=== PATIENT | male | born 1965 | race Caucasian/White ===

== ENCOUNTER 2021-01-16 14:24 | Emergency (ER) | payer OTHER ==
[2021-01-16 14:58] VITALS: TEMP 98.6; BMI 28.3
[2021-01-16] MEDS ORDERED: IBUPROFEN 600 MG TABLET (FP) PO ONE (15:31)
[2021-01-16 16:19] LABS: BASO % 0.7 % (0-2.0); EOS % 3.7 % (0-4.5); HEMATOCRIT 40.7 % (35.4-49); HEMOGLOBIN 13.9 GM/dL (11.7-16.9); LYMPH % 39.9 % (8-40); MCH 31.2 pg (25.7-33.7); MCHC 34.2 g/dl (32.0-35.9); MEAN CELL VOLUME 91.4 fl (80-96); NEUT % 44.7 % (42.8-82.8); PLATELET COUNT 157 K/MM3 (134-434); RBC 4.45 M/mm3 (4.00-5.60); WHITE BLOOD COUNT 5.4 K/mm3 (4.0-10.0)
[2021-01-16 16:35] LABS: CHLORIDE 106 mmol/L (98-107); SODIUM 137 mmol/L (136-145)
[2021-01-16 16:39] LABS: CALCIUM 8.5 mg/dL (8.5-10.1)
[2021-01-16 16:40] LABS: ALBUMIN 3.9 g/dl (3.4-5.0); ANION GAP 4 MMOL/L (8-16); BLOOD UREA NITROGEN 13.6 mg/dL (7-18); CO2 28 mmol/L (21-32); GLUCOSE,RANDOM 93 mg/dL (74-106)
[2021-01-16 16:43] LABS: SGOT/AST 26 U/L (15-37); SGPT/ALT 40 U/L (13-61)
[2021-01-16 16:44] LABS: BILIRUBIN,TOTAL 0.8 mg/dL (0.2-1); TOT PROT 7.6 g/dl (6.4-8.2)
[2021-01-16 16:45] LABS: ALK PHOS 146 U/L (45-117)
[2021-01-16 17:25] VITALS: BP 129/85; PULSE 65
== END 2021-01-16 17:34 | disposition home or self-care (01) ==
LOC: JER 14:24
DX: R07.9 Chest pain, unspecified (principal)
CPT/HCPCS: 36415; 71046-TC-FY; 80053; 82550; 82553; 84484; 85025; 93005; 93010; 99285-25